=== PATIENT | female | born 1975 | race American Indian/Alaskan Native ===

== ENCOUNTER 2017-03-20 08:49 | Emergency (ER) | payer OTHER ==
--- NOTE | 2017-03-20 09:06 | ED PDOC ---
Arrival/HPI - General Time Seen by Provider: 03/20/17 09:05 Historian: Patient - History of Present Illness Narrative History of Present Illness (Text): 03/20/17 09:05 41 y/o female, no significant pmh, nkda, c/o Lt. knee and calf pain x 3 days with no fall or trauma. Pt. stated that she was jogging about couple days ago, been having lt. knee pain with the swelling radiating to the calf, no numbness or tingling, no fever or chills, no night sweat, no rash, no other medical or psychological complaints. Past Medical History - Provider Review Nursing Documentation Reviewed: Yes Family/Social History - Physician Review Nursing Documentation Reviewed: Yes Family/Social History: Unknown Family HX Allergies/Home Meds Allergies/Adverse Reactions: Allergies No Known Allergies Allergy (Verified 03/20/17 09:10) Review of Systems - Review of Systems Constitutional: absent: Fatigue, Fevers Eyes: absent: Vision Changes ENT: absent: Hearing Changes Respiratory: absent: SOB, Cough Cardiovascular: absent: Chest Pain Gastrointestinal: absent: Abdominal Pain, Nausea, Vomiting Musculoskeletal: Arthralgias, Joint Swelling, Myalgias. absent: Back Pain, Neck Pain Neurological: absent: Headache, Dizziness Physical Exam Vital Signs Reviewed: Yes Vital Signs Temp Pulse Resp BP Pulse Ox 03/20/17 09:14 98.3 F 65 19 95/62 L 99 Temperature: Afebrile Pulse: Regular Respiratory Rate: Normal Appearance: Positive for: Well-Appearing, Non-Toxic Pain Distress: Moderate Mental Status: Positive for: Alert and Oriented X 3 - Systems Exam Head: Present: Atraumatic, Normocephalic Pupils: Present: PERRL Extroacular Muscles: Present: EOMI Conjunctiva: Present: Normal Mouth: Present: Moist Mucous Membranes Neck: Present: Normal Range of Motion Respiratory/Chest: Present: Clear to Auscultation, Good Air Exchange. No: Respiratory Distress, Accessory Muscle Use Cardiovascular: Present: Regular Rate and Rhythm, Normal S1, S2. No: Murmurs Abdomen: Present: Normal Bowel Sounds. No: Tenderness, Distention, Peritoneal Signs Back: Present: Normal Inspection Upper Extremity: Present: Normal Inspection. No: Cyanosis, Edema Lower Extremity: Present: Normal Inspection, Other (LLE: +ttp and swelling on the medial apsect of the knee, negative starla and collins signs, FROM without limitation, sensation intact, motor 5/5, +DPPT pulses, capillary refill< 2 seconds, neurovascular intact. ). No: Edema Neurological: Present: GCS=15, Speech Normal, Motor Func Grossly Intact, Memory Normal Skin: Present: Warm, Dry, Normal Color. No: Rashes Psychiatric: Present: Alert, Oriented x 3, Normal Insight, Normal Concentration Medical Decision Making ED Course and Treatment: 03/20/17 09:33 -Lt. knee xray and LLE venuous doppler -indocin -taqueria wrap -observe and reassess 03/20/17 11:05 -LLE Venuous Doppler: as per preliminary, no acute DVT -Lt. knee xray: normal left knee. -Pain improved, will discharge home. -Discharge home with indocin, taqueria wrap, crutches, ice compression, follow up with your own pmd and orthopedic within 2 days, return to the ER for any new or worsening signs or symptoms. - RAD Interpretation Radiology Orders: 03/20/17 09:21 KNEE WITH PATELLA LEFT 3 VIEW [RAD] Stat 03/20/17 09:26 DUPLEX LOWER EXTRM VEIN LEFT [US] Stat LLE Venuous Doppler: as per preliminary, no acute DVT Lt. knee xray: normal left knee. 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 Disposition/Present on Arrival - Present on Arrival Any Indicators Present on Arrival: No History of DVT/PE: No History of Uncontrolled Diabetes: No Urinary Catheter: No History of Decub. Ulcer: No - Disposition Have Diagnosis and Disposition been Completed?: Yes Diagnosis: Bursitis, Knee pain Disposition: HOME/ ROUTINE Disposition Time: 11:07 Patient Plan: Discharge Patient Problems: Current Active Problems Problem Status Onset Bursitis Acute Condition: GOOD Additional Instructions: -Discharge home with indocin, taqueria wrap, crutches, ice compression, follow up with your own pmd and orthopedic within 2 days, return to the ER for any new or worsening signs or symptoms. Prescriptions: Indomethacin [Indocin] 50 mg PO TID PRN #30 cap PRN Reason: Other Referrals: Nathan Finch DO [Primary Care Provider] - Follow up with primary Yee Arechiga MD [Staff Provider] - Follow up with primary Forms: WORK NOTE
[2017-03-20 09:10] VITALS: BMI 23.2
[2017-03-20 09:14] VITALS: TEMP 98.3; O2SAT 99
--- NOTE | 2017-03-20 10:36 | RAD ---
PROCEDURE: Left Knee Radiographs. HISTORY: Pain. COMPARISON: None. FINDINGS: BONES: Normal. No fracture. JOINTS: Normal. No osteoarthritis. JOINT EFFUSION: None. OTHER FINDINGS: The patellar view is unremarkable IMPRESSION: Normal radiographs of the left knee.
--- NOTE | 2017-03-20 10:38 | US ---
PROCEDURE: Left lower extremity venous US HISTORY: Leg pain and swelling. Evaluate for DVT. PHYSICIAN(S): Uriah Houston MD. TECHNIQUE: Duplex sonography and color-flow Doppler with graded compression were used to evaluate the deep venous system of the left lower extremity. FINDINGS: The visualized deep venous system of the left lower extremity is sonographically normal and compressible. Normal wave forms and augmentation are seen. There is no sonographic evidence for deep venous thrombosis in the visualized segments of the left lower extremity. IMPRESSION: 1. No sonographic evidence for deep venous thrombosis in the visualized segments of the left lower extremity.
[2017-03-20 11:12] VITALS: BP 110/70; PULSE 68; RESP 18
== END 2017-03-20 11:36 | disposition home or self-care (01) ==
LOC: ED 08:49 → MERGE 08:49 → ED 11:36
DX: M71.562 Other bursitis, not elsewhere classified, left knee (principal); M25.562 Pain in left knee

== ENCOUNTER 2017-10-20 05:44 | Emergency (ER) | payer OTHER ==
[2017-10-20 05:45] VITALS: BMI 23.2
[2017-10-20 06:15] VITALS: BP 103/56; PULSE 72; RESP 18; TEMP 98.2; O2SAT 100
--- NOTE | 2017-10-20 06:15 | ED PDOC ---
Arrival/HPI - General Time Seen by Provider: 10/20/17 06:12 Historian: Patient - History of Present Illness Narrative History of Present Illness (Text): 10/20/17 06:12 42 year old female, with no significant past medical history, presents to the emergency department for evaluation of a superficial skin flap laceration to the left 4th finger. Patient was in the closet when she reached over and sliced her finger on the metal garbage can fry. Patient reports she could not stop the bleeding and was concerned for possible need of stitches. Patient denies any other injuries. Patient denies any fever, chills, nausea, vomiting, back pain, neck pain, headache, dizziness, or any other complaints. Time/Duration: Prior to Arrival Symptom Onset: Sudden Symptom Course: Unchanged Activities at Onset: Light Context: Home Past Medical History - Provider Review Nursing Documentation Reviewed: Yes - Infectious Disease Hx of Infectious Diseases: None - Psychiatric Hx Substance Use: No - Anesthesia Hx Anesthesia: No Family/Social History - Physician Review Nursing Documentation Reviewed: Yes Family/Social History: No Known Family HX Smoking Status: Never Smoked Hx Alcohol Use: Yes Hx Substance Use: No Allergies/Home Meds Allergies/Adverse Reactions: Allergies No Known Allergies Allergy (Verified 10/20/17 06:08) Home Medications: Home Meds Medication Instructions Recorded Confirmed No Known Home Med 10/20/17 10/20/17 Review of Systems - Physician Review All systems were reviewed & negative as marked: Yes - Review of Systems Constitutional: absent: Fevers, Other (Chills) Gastrointestinal: absent: Nausea, Vomiting Musculoskeletal: absent: Back Pain, Neck Pain Skin: Laceration (left 4th finger) Neurological: absent: Headache, Dizziness Physical Exam Vital Signs Reviewed: Yes Vital Signs Temp Pulse Resp BP Pulse Ox 10/20/17 06:09 98.2 F 72 18 103/56 L 100 Temperature: Afebrile Blood Pressure: Normal Pulse: Regular Respiratory Rate: Normal Appearance: Positive for: Well-Appearing, Non-Toxic, Comfortable Pain Distress: None Mental Status: Positive for: Alert and Oriented X 3 - Systems Exam Head: Present: Atraumatic, Normocephalic Pupils: Present: PERRL Extroacular Muscles: Present: EOMI Conjunctiva: Present: Normal Mouth: Present: Moist Mucous Membranes Neck: Present: Normal Range of Motion Respiratory/Chest: Present: Clear to Auscultation, Good Air Exchange. No: Respiratory Distress, Accessory Muscle Use Cardiovascular: Present: Regular Rate and Rhythm, Normal S1, S2. No: Murmurs Back: Present: Normal Inspection Upper Extremity: Present: Normal Inspection, NORMAL PULSES, Neurovascularly Intact, Other (superficial skin flap laceration less than 1cm to the left fourth digit dorsal surface. ). No: Cyanosis, Edema Neurological: Present: GCS=15, CN II-XII Intact, Speech Normal Skin: Present: Warm, Dry, Normal Color. No: Rashes Psychiatric: Present: Alert, Oriented x 3, Normal Insight, Normal Concentration Medical Decision Making ED Course and Treatment: 10/20/17 06:17 Impression: 42 year old female presents for evaluation of superficial skin flap laceration to the 4th digit from a metal garbage can. Plan: -- Laceration Repair -- Boostrix Vaccine Inj -- Reassess and disposition Progress Notes: 10/20/17 06:25 PROCEDURE: LACERATION REPAIR Performed by the emergency provider Location: left fourth digit Length: less than 1cm Description: {"clean wound edges","no foreign bodies"} Distal CMS: Normal. No deficits. Neurovascularly intact. Preparation: The wound was cleaned with saline. The area was prepped and draped in the usual sterile fashion. Exploration: The wound was explored and no foreign bodies were found. Procedure: The wound was closed with derma bound and steri strip There was good approximation. Post-Procedure: Good closure and hemostasis. The patient tolerated the procedure well and there were no complications. CSM remains intact. Post procedure bandage applied. - Medication Orders Current Medication Orders: Tetanus/Reduced Diphtheria/Acell Pertussis (Boostrix Vaccine Inj) 0.5 ml IM .ONCE ONE Stop: 10/20/17 06:44 - Scribe Statement The provider has reviewed the documentation as recorded by the Maria Aibmansoor Krishnamurthy Provider Scribe Attestation: All medical record entries made by the Scribe were at my direction and personally dictated by me. I have reviewed the chart and agree that the record accurately reflects my personal performance of the history, physical exam, medical decision making, and the department course for this patient. I have also personally directed, reviewed, and agree with the discharge instructions and disposition. Disposition/Present on Arrival - Present on Arrival Any Indicators Present on Arrival: No History of DVT/PE: No History of Uncontrolled Diabetes: No Urinary Catheter: No History Surgical Site Infection Following: None - Disposition Have Diagnosis and Disposition been Completed?: Yes Diagnosis: Finger laceration Disposition: HOME/ ROUTINE Disposition Time: 06:41 Patient Plan: Discharge Patient Problems: Current Active Problems Problem Status Onset Finger laceration Acute Condition: GOOD Discharge Instructions (ExitCare): Laceration Repair, Laceration Repair With Glue (DC) Additional Instructions: Keep wound clean and dry/do not apply any creams/follow up with your doctor Referrals: Nathan Finch DO [Primary Care Provider] - Follow up with primary
[2017-10-20] MEDS ORDERED: TDAP Vaccine 0.5 mL Syr IM ONE (06:43)
== END 2017-10-20 07:05 | disposition home or self-care (01) ==
LOC: ED 05:44
DX: S61.215A Laceration without foreign body of left ring finger without damage to nail, initial encounter (principal); W45.8XXA Other foreign body or object entering through skin, initial encounter; Y92.89 Other specified places as the place of occurrence of the external cause; Z23 Encounter for immunization

== ENCOUNTER 2018-02-06 16:00 | Emergency (ER) | payer OTHER ==
[2018-02-06 16:00] VITALS: BMI 23.2
[2018-02-06] MEDS ORDERED: guaiFENesin 100 mg/5 ml Syrup UD PO ONE (17:10)
--- NOTE | 2018-02-06 17:16 | ED PDOC ---
Arrival/HPI - General Chief Complaint: Cough, Cold, Congestion Time Seen by Provider: 02/06/18 16:05 Historian: Patient - History of Present Illness Narrative History of Present Illness (Text): 02/06/18 17:11 pt p/w + 3days onset of nasal congestion/stuffiness, facial fullness, + sore throat, + coughing with clear/yellow phlegm, worsening over the last 2-3 days; pt denied fever/chills/sweats, pt mentions chest tightness with coughing; pt denied sob, no palpitations, no wheezing, no abd pain, no n/v, + intact appetite , no urinary/bowel changes, no numbness/tingling, no fall/trauma/sick contact, no travel; pt is here for further eval; pt's without other complaints. pt express concern and wanted to be checked out PCP: DR Finch Time/Duration: < week (3 days) Symptom Onset: Sudden Symptom Course: Worsening Quality: Tightness Severity Level: Moderate Activities at Onset: Rest Context: Home Past Medical History - Provider Review Nursing Documentation Reviewed: Yes - Travel History Have you recently traveled outside [place] w/in the past 3 mons?: No - Past History Past History: Non-Contributing - Infectious Disease Hx of Infectious Diseases: None - Reproductive Menopause: No Currently : Unknown - Psychiatric Hx Substance Use: No - Anesthesia Hx Anesthesia: No Family/Social History - Physician Review Nursing Documentation Reviewed: Yes Family/Social History: No Known Family HX Smoking Status: Never Smoked Hx Alcohol Use: Yes Hx Substance Use: No Hx Substance Use Treatment: No Allergies/Home Meds Allergies/Adverse Reactions: Allergies No Known Allergies Allergy (Verified 02/06/18 16:51) Review of Systems - Review of Systems Constitutional: Fatigue. absent: Fevers Eyes: Normal ENT: Sore Throat, Rhinorrhea, Sinus Congestion Respiratory: Cough, Sputum. absent: SOB, Wheezing Cardiovascular: Chest Pain. absent: STALEY, Orthopnea, Syncope Gastrointestinal: Normal. absent: Abdominal Pain Genitourinary Female: Normal Musculoskeletal: Normal Skin: Normal Neurological: Normal. absent: Headache, Dizziness Endocrine: Normal Hemo/Lymphatic: Normal Psychiatric: Normal Physical Exam - Physical Exam Narrative Physical Exam (Text): 02/06/18 17:15 General: alert/awake, GCS = 15, oriented x 3, resting in bed, uncomfortable, cooperative, interactive; NAD Head: NC/AT EYE: PERRLA, EOMI, sclera anicteric, no nystagmus, no photophobia; visual field intact b/l Facial: WNL ENT: no erythema/discharge/exudate noted; TM intact b/l, no bulging/masses/ tenderness/discharge noted b/l Oral: uvula/tongue are midline, no exudate/lesions, no drooling/stridor, no dysphonia; intact dentitions; moist oral mucosa NECK: intact ROM, no midline tenderness, no nuchal rigidity, no meningeal signs ; no step off Chest: CTA b/l, no w/r/r; no tachypenia, no accessory muscle use noted Cardiac: +S1, +S2, no m/r/r, no tachycardia Abdominal: +BS, soft/nd/nt, well nourished patient; no masses/rebound/guarding/ rigidity; no quiles's sign, no mcburney's point tenderness Extremities: intact ROM, strength 5/5 grossly intact in all limbs, neurovasc intact b/l; + ambulatory; reflex +2/2 BACK: no step off, no midline tenderness, NO crepitus, no gross deformities noted; Intact ROM SKIN: cap refill < 1 sec, no ulcerations, no petechiae, no rashes; no pallor NEURO: CNII-XII WNL, no facial asymmetries, no slurr speech, oriented x 3 NIH stroke scale ~ 0 Psych: normal insight, normal affect; follows command with ease Vital Signs Reviewed: Yes Vital Signs Temp Pulse Resp BP Pulse Ox 02/06/18 19:48 98.1 F 74 18 108/68 99 02/06/18 17:49 99 F 77 18 104/67 100 02/06/18 16:00 98.4 F 78 18 107/70 99 Temperature: Afebrile Blood Pressure: Normal Pulse: Regular Respiratory Rate: Normal Appearance: Positive for: Well-Appearing, Non-Toxic, Uncomfortable. No: Comfortable, Ill-Appearing Pain Distress: None Mental Status: Positive for: Alert and Oriented X 3 - Systems Exam Head: Present: Atraumatic, Normocephalic Medical Decision Making ED Course and Treatment: 02/06/18 17:15 Impression: cough/congestion/sore throat i have consider all the differential diagnosis regarding pt's chief medical complaints/clinical findings, including but are not limited to: viral vs bacterial vs allergic cause A/P: cough/congestion/sore throat - xray - rapid strept - supportive care - observe/reevaluation 02/06/18 1900 pt remained comfortable pt is not in any distress vital signs WNL given pt's symptoms, lack of fever, pt likely has allergic rhinitis/congestion; possible viral syndrome; will NOT recommend abx for now, will recommend anti- histamine meds as well as supportive care treatment for comfort; pt made aware and agrees with the txt/mgt plan pt is made aware of her medical results pt is encouraged hydration pt is encouraged 1tsp of honey every 8 hours for cough control pt will f/u as directed pt will be discharged home Re-evaluation Time: 19:33 Reassessment Condition: Improved - Lab Interpretations Lab Results: Lab Results 02/06/18 18:17: Grp A Beta Strep Ag Negative I have reviewed the lab results: Yes Interpretation: All labs normal - RAD Interpretation Narrative RAD Interpretations (Text): 02/06/18 18:34 Prelim: Chest X-ray reviewed, shows no acute disease. 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 - Medication Orders Current Medication Orders: Discontinued Medications Guaifenesin (Robitussin) 100 mg PO ONCE ONE Stop: 02/06/18 17:11 Last Admin: 02/06/18 17:56 Dose: 100 mg Ibuprofen (Motrin Tab) 600 mg PO STAT STA Stop: 02/06/18 17:10 Last Admin: 02/06/18 17:54 Dose: 600 mg MAR Pain/Vitals Document 02/06/18 17:54 EQ (Rec: 02/06/18 17:55 EQ [id number]) Pain Reassessment Is This A Pain ReAssessment? No Sleep Is patient sleeping during reassessment? No Presence of Pain Presence of Pain Yes Disposition/Present on Arrival - Present on Arrival Any Indicators Present on Arrival: No History of DVT/PE: No History of Uncontrolled Diabetes: No Urinary Catheter: No History of Decub. Ulcer: No History Surgical Site Infection Following: None - Disposition Have Diagnosis and Disposition been Completed?: Yes Diagnosis: Cough, Nasal congestion, Sore throat, Allergic Disposition: HOME/ ROUTINE Disposition Time: 19:34 Patient Plan: Discharge Condition: STABLE Discharge Instructions (ExitCare): Seasonal Allergies in Adults, Cough in Adults, Sore Throat in Adults Print Language: [place] Additional Instructions: Make sure to see your doctor in 1-2 days DRINK PLENTY OF FLUIDS take your medications as prescribed close your windows at night when sleeping to decrease exposure to allergens try 1 teaspoon of honey every 8 hours for cough control RETURN TO ED IF worse pain, cant breath, persistent vomiting, high fever >101- 102 for hours, altered behavior, slurr speech, facial changes, focal weakness ( arm/leg or both), unable to urinate, heavy/persistent bleeding, passing out, chest pain, or other medical emergencies Prescriptions: Guaifenesin/Dextromethorphan [Guaifenesin Dm Syrup] 10 ml PO TID PRN #240 ml PRN Reason: Cough Ibuprofen [Motrin] 600 mg PO TID PRN #30 tab PRN Reason: Pain, Mild (1-3) Loratadine [Claritin] 10 mg PO DAILY PRN #14 tab PRN Reason: Allergy Symptoms Referrals: Nathan Finch DO [Primary Care Provider] - Follow up with primary Forms: [employer] (Cam[place]onian), WORK NOTE
[2018-02-06 17:50] VITALS: RESP 18
[2018-02-06 19:49] VITALS: BP 108/68; PULSE 74; TEMP 98.1; O2SAT 99
--- NOTE | 2018-02-07 10:43 | RAD ---
HISTORY: Cough and productive sputum COMPARISON: No prior. TECHNIQUE: Chest PA and lateral FINDINGS: LUNGS: No active pulmonary disease. PLEURA: No significant pleural effusion identified. No pneumothorax apparent. CARDIOVASCULAR: Normal. OSSEOUS STRUCTURES: No significant abnormalities. VISUALIZED UPPER ABDOMEN: Normal. OTHER FINDINGS: None. IMPRESSION: No active disease. Concordant results with the preliminary interpretation rendered by the emergency department physician procedure.
--- NOTE | 2018-02-07 17:05 | CARD ---
APPROVED REPORT EKG Measurement Heart [id number] <Conclusion> Normal sinus rhythm Normal ECG
== END 2018-02-06 19:48 | disposition home or self-care (01) ==
LOC: ED 16:00
DX: J02.9 Acute pharyngitis, unspecified (principal); R05 Cough; R09.81 Nasal congestion